=== PATIENT | male | born 1980 | race Caucasian/White ===

== ENCOUNTER 2023-05-24 16:28 | Emergency (ER) | payer OTHER ==
[2023-05-24] MEDS ORDERED: Diphtheria,Pertussis(Acell),Tetanus Vaccine 0.5 ML Syringe IM ONE (16:45)
[2023-05-24] MEDS ORDERED: Lidocaine 1% with EPINEPHrine 1:100,000 20 ML MDV INJECT ONE (16:57)
== END 2023-05-24 17:34 | disposition home or self-care (01) ==
LOC: MW.ED 16:28
DX: S01.81XA Laceration without foreign body of other part of head, initial encounter (principal); Z23 Encounter for immunization; I10 Essential (primary) hypertension; Z88.0 Allergy status to penicillin; Z79.899 Other long term (current) drug therapy; W22.8XXA Striking against or struck by other objects, initial encounter
CPT/HCPCS: 12013; 90471; 90715; 99282-25

== ENCOUNTER 2023-05-29 15:17 | Emergency (ER) | payer OTHER | END 2023-05-29 16:57 | disposition left against medical advice (07) | LOC: MW.ED 15:17 | DX: S01.81XD Laceration without foreign body of other part of head, subsequent encounter (principal); Z48.02 Encounter for removal of sutures | CPT/HCPCS: 99281 ==